=== PATIENT | female | born 1955 | race Caucasian/White ===

== ENCOUNTER 2018-11-29 07:31 | Day surgery (SDC) | payer MEDICARE, OTHER ==
[~2018-11-29 07:31] MED LIST: Lactated Ringers 1,000 ML IV SCH; Sodium Chloride 0.9% 10 ML Syringe FLUSH PRN
[2018-11-29] MEDS ORDERED: Propofol 200 MG/20 ML SDV IV ONE (07:32)
[2018-11-29] MEDS ORDERED: Midazolam 1 MG/ML 2 ML SDV IV ONE (07:32)
--- NOTE | 2018-11-29 09:30 | PREOP ---
ADMISSION DATE: 11/29/2018 CHIEF COMPLAINT: Screening for colon cancer. HISTORY OF PRESENT ILLNESS: This is a 63-year-old white female, last scope was 10 years ago. She is negative. She has no complaints except for some rare spots of blood on her toilet paper when she wipes. It occurs very occasionally, has a history of constipation as well. Mother does have a history of colon polyps. ALLERGIES: She is allergic to amoxicillin and sulfa. PAST MEDICAL HISTORY: Significant for headaches, lumbago, urinary incontinence. PAST SURGICAL HISTORY: Significant for teeth extraction, urethral suspension. FAMILY HISTORY: Significant for asthma, hypertension, glaucoma, colon polyps, prostate cancer, macular degeneration. SOCIAL HISTORY: The patient is with 3 children. She is a former smoker. Has approximately 2 beers per week. MEDICATIONS: 1. Excedrin tension headache. 2. Calcium carbonate and vitamin D. 3. MiraLAX. REVIEW OF SYSTEMS: Negative for constitutional, HEENT, pulmonary, respiratory, cardiovascular, genitourinary, and neurologic. PHYSICAL EXAMINATION: GENERAL: This is a well-developed, well-nourished female, appearing in no acute distress. VITAL SIGNS: Stable. Afebrile. HEENT: Exam was grossly within normal limits. LUNGS: Clear to auscultation. HEART: Had a regular rate and rhythm. ABDOMEN: Soft, nontender. ASSESSMENT: Colon cancer screening. PLAN: C-scope. Procedure and risks are explained to the patient to include bleeding, perforation, and infection. The patient expresses understanding and she asked us to proceed. /[id number] /MODL
--- NOTE | 2018-11-29 09:50 | PCM.OPNOTE ---
- General Post-Op/Procedure Note Date of Surgery/Procedure: 11/29/18 Operative Procedure(s): c scope Findings: sigmoid diverticulosis hemorrhoids Pre Op Diagnosis: screening Post-Op Diagnosis: Same Anesthesia Technique: MAC Primary Surgeon: Rolf Lange Anesthesia Provider: Judy Villalba Pathology: none Complications: None Condition: Good Free Text/Narrative:: see dictation
[2018-11-29] MEDS ORDERED: Ketorolac 30 MG/ML SDV IM ONE (11:06)
--- NOTE | 2018-11-29 13:42 | OR ---
DATE OF OPERATION: 11/29/2018 SURGEON: Rolf Lange MD PROCEDURE PERFORMED: Colonoscopy. PREOPERATIVE DIAGNOSIS: Need for screening C-scope. POSTOPERATIVE DIAGNOSIS: Sigmoid diverticulosis, internal hemorrhoids. INDICATIONS FOR PROCEDURE: This is a 63-year-old white female referred for followup colonoscopy essentially without complaints except for occasional spot of blood on her toilet paper, which happens very rarely. DESCRIPTION OF OPERATION: After an excellent IV sedation was administered, digital rectal exam was performed. No marked abnormality was noted. Flexible colonoscope was inserted and advanced to the cecum. The prep was excellent following findings were noted. Ascending colon, unremarkable. Transverse colon, unremarkable. Descending colon, unremarkable. Sigmoid, scattered diverticula. Rectum unremarkable. Anus appears to have grade 3 hemorrhoids. No active bleeding noted. The colon was deflated, scope was removed. The patient tolerated the procedure well. Repeat colonoscopy in 10 years. /[id number] /MODL
== END 2018-11-29 11:12 | disposition home or self-care (01) ==
LOC: FB.SDS 07:31
PROVIDERS: ATTEND Surgery
DX: Z12.11 Encounter for screening for malignant neoplasm of colon (principal); K57.30 Diverticulosis of large intestine without perforation or abscess without bleeding; K64.8 Other hemorrhoids; Z88.0 Allergy status to penicillin; Z88.2 Allergy status to sulfonamides; Z87.891 Personal history of nicotine dependence; Z83.71 Family history of colonic polyps; Z79.899 Other long term (current) drug therapy
CPT/HCPCS: 00811; G0121; J1885; J2250; J2704; J7120